=== PATIENT | male | born 1975 | race Caucasian/White ===

== ENCOUNTER → 2016-08-18 | Outpatient (CLI) | payer OTHER ==
--- NOTE | 2016-08-18 12:02 | US ---
Sonography Limited to the Right Upper Quadrant of the Abdomen CLINICAL HISTORY: 41-year-old male with pain and nausea, particularly after high fatty meals. Rule ou t cholelithiasis. ICD 10 Diagnostic Code: R10.9. TECHNIQUE: A curvilinear 5 MHz transducer was used to sonographically evaluate the right upper quadra nt of the abdomen. Color Doppler was used. COMPARISON STUDY: None. FINDINGS: There is some increased echogenicity associated with the pancreas, consistent with some fat ty infiltration. A portion of the pancreatic head and tail are partially partially obscured by bowel gas and limited secondary to the patient's body habitus. The abdominal aorta is normal in size, and t apers normally. The visualized IVC is normal in caliber. The hepatic vein trifurcation is normal. The main portal vein is patent. The liver is enlarged, measuring 19.6 cm along the right midaxillary jazlyn e, and diffusely echogenic, consistent with steatosis (fatty infiltration). There is no discrete hepa tic mass observed. There is no intra or extrahepatic bile duct dilatation. The common bile duct measu res 2.0 mm. The gallbladder is moderately distended, and there is no evidence of cholelithiasis, slud ge, polyp, wall thickening, pericholecystic fluid, or sonographic Basurto sign. The gallbladder wall t hickness is 2.6 mm. The right kidney is normal in size, shape, and contour, with a normal renal corti cachorro thickness, and no focal renal mass or hydronephrosis, and measures 10.3 x 6.4 x 5.9 cm. There may be a duplicated renal collecting system. The renal cortical thickness is normal, measuring 1.6 cm. T here is no ascites or right pleural effusion. IMPRESSION: 1. Fatty infiltration of the pancreas and liver. 2. Hepatomegaly. 3. Normal appearance of the gallbladder, with no cholelithiasis, cholecystitis, or bile duct dilatati on. If there is further concern regarding the patient's postprandial nausea with fatty meals and the poss ibility of gallbladder dyskinesia, a nuclear medicine hepatobiliary scan with a gallbladder ejection fraction could be considered.
== END ==
LOC: CIMAGING 10:49
PROVIDERS: ATTEND Family Medicine
DX: K76.0 Fatty (change of) liver, not elsewhere classified (principal); R16.0 Hepatomegaly, not elsewhere classified
CPT/HCPCS: 76705-PO

== ENCOUNTER → 2016-09-08 | Outpatient (CLI) | payer OTHER | LOC: FIMAGING 09:15 | PROVIDERS: ATTEND Family Medicine | DX: R10.9 Unspecified abdominal pain (principal) | CPT/HCPCS: A9537 ==